=== PATIENT | female | born 1955 | race Caucasian/White ===

== ENCOUNTER 2017-12-20 19:57 | Emergency (ER) | payer OTHER ==
[~2017-12-20] VITALS: Ht 165.1 cm; Wt 92.1 kg
[~2017-12-20 19:57] MED LIST: NOHOMEMEDS
[2017-12-20] MEDS ORDERED: VALIUM2 MG PO (23:13)
[2017-12-20] MEDS ORDERED: ULTRACET1 TABLET PO (23:13)
[2017-12-20] MEDS ORDERED: MOTRIN600 MG PO (23:13)
[2017-12-20 23:31] VITALS: BP 173/84
== END 2017-12-20 23:36 | disposition home or self-care (01) ==
LOC: EME 19:57
DX: S09.90XA Unspecified injury of head, initial encounter (principal); S00.83XA Contusion of other part of head, initial encounter; S50.811A Abrasion of right forearm, initial encounter; S70.01XA Contusion of right hip, initial encounter; S60.511A Abrasion of right hand, initial encounter; S16.1XXA Strain of muscle, fascia and tendon at neck level, initial encounter; W18.30XA Fall on same level, unspecified, initial encounter; Y93.02 Activity, running
CPT/HCPCS: 73502; 99281; 99285